=== PATIENT | female | born 1980 | race Hispanic/Latino ===

== ENCOUNTER 2021-11-09 09:53 | Outpatient (CLI) | payer SELFPAY | END 2021-11-09 09:54 | disposition home or self-care (01) | LOC: CSHMAMMO 09:53 | PROVIDERS: ATTEND Nurse Practitioner Family | DX: Z12.31 Encounter for screening mammogram for malignant neoplasm of breast (principal); Z91.89 Other specified personal risk factors, not elsewhere classified | CPT/HCPCS: 77063; 77067 ==